=== PATIENT | male | born 1970 | race Caucasian/White ===

== ENCOUNTER 2017-01-04 12:37 | Emergency (ER) | payer BC ==
[~2017-01-04] VITALS: Ht 162.6 cm; Wt 81.6 kg
[2017-01-04 13:11] VITALS: BP 130/80; PULSE 85; RESP 16; TEMP 98.2; O2SAT 100
--- NOTE | 2017-01-04 13:13 | NUR ---
DR. ECHAVARRIA EXAMINING PT IN TRIAGE ROOM
--- NOTE | 2017-01-04 13:35 | NUR ---
Pt brought by self, present with sore throat, dyspagia and R earache, skin pink and warm, afebrile , VSS, respirations even and unlabored.
--- NOTE | 2017-01-04 13:36 | NUR ---
Patient given written and verbal discharge instructions and verbalizes understanding. ER MD discussed with patient the results and treatment provided.Patient in stable condition. ID arm band removed. Rx of Amoxicillin, Decadron and Ibuprofen given. Patient educated on pain management and to follow up with PMD. Pain Scale 0/10 . Opportunity for questions provided and answered.
[2017-01-04 13:48] VITALS: BP 130/80; PULSE 85; RESP 16; TEMP 98.2; O2SAT 100
== END 2017-01-04 13:36 | disposition home or self-care (01) ==
LOC: SED 12:37
DX: J03.90 Acute tonsillitis, unspecified (principal); H92.01 Otalgia, right ear; R03.0 Elevated blood-pressure reading, without diagnosis of hypertension
CPT/HCPCS: 99283